=== PATIENT | female | born 1970 | race Caucasian/White ===

== ENCOUNTER 2016-09-06 11:20 | Outpatient (CLI) | payer OTHER ==
--- NOTE | 2016-09-06 12:13 | DIAGNOSTIC IMAGING REPORT ---
PROCEDURE: XR SHOULDER 2 OR MORE VW-LEFT INDICATION: SHOULDER PX,LEFT TECHNIQUE: Three views. COMPARISON: None. FINDINGS: Left glenohumeral joint arthroplasty. No fracture or loosening. Soft tissues are unremarkable. IMPRESSION: 1. No acute changes 2. Left glenohumeral joint arthroplasty
== END 2016-09-06 23:00 ==
LOC: XR SRH 11:20
DX: M25.512 Pain in left shoulder (principal); Z96.612 Presence of left artificial shoulder joint